=== PATIENT | female | born 1970 | race Caucasian/White ===

== ENCOUNTER 2019-08-22 16:41 | Emergency (ER) | payer SELFPAY ==
[~2019-08-22] VITALS: Ht 165.1 cm; Wt 119.3 kg
--- NOTE | 2019-08-22 17:18 | NUR ---
FIRST CONTACT WITH PT. PT STATES "BLEEDING FOR 2 MONTHS, A LOT HEAVIER LAST COUPLE DAYS, SEE DR. AHMADI ON MONDAY. CRAMPING WORSE LAST COUPLE DAYS AND LOW BACK PAIN, I COULDN'T WAIT UNTIL MONDAY. STARTED TAKING PROVERA 10MG FOR LAST 4 DAYS." A4. PT'S AOX4. RESPS EVEN AND UNLABORED. DENIES ANY URINARY SX. BP/SPO2 MONITORS IN PLACE. CALL LIGHT WITHIN REACH. AT BEDSIDE.
--- NOTE | 2019-08-22 18:10 | NUR ---
pt amb to br and back to room with steady gait. pt provided urine sample. ua sent.
[2019-08-22 18:30] LABS: BASOPHILS # (AUTO) 0.04 x10^3/uL (0-0.1); BASOPHILS % (AUTO) 1 % (0-1); EOSINOPHILS # (AUTO) 0.25 x10^3/uL (0-0.4); EOSINOPHILS % (AUTO) 4 % (1-7); LYMPHOCYTES # (AUTO) 1.97 x10^3/uL (1-3.4); LYMPHOCYTES % (AUTO) 34 % (22-44); MD NO; MEAN CORPUSCULAR HEMOGLOBIN 29.5 pg (27.0-34.8); MEAN CORPUSCULAR HGB CONC 33.1 g/dL (32.4-35.8); MEAN PLATELET VOLUME 7.8 fL (7.4-10.4); MONOCYTES # (AUTO) 0.51 x10^3/uL (0.2-0.8); MONOCYTES % (AUTO) 9 % (2-9); NEUTROPHILS # (AUTO) 3.01 x10^3/uL (1.8-6.8); NEUTROPHILS % (AUTO) 52 % (42-75); PLATELET COUNT 365 x10^3/uL (130-400); RED BLOOD COUNT 4.44 x10^6/uL (3.82-5.3); RED CELL DISTRIBUTION WIDTH 13.6 % (9.6-15.2)
[2019-08-22 18:41] LABS: ANION GAP 7 mmol/L (5-15); CALCIUM 8.6 mg/dL (8.5-10.1); CHLORIDE 104 mmol/L (98-107); CREATININE 0.84 mg/dL (0.55-1.02)
[2019-08-22 18:42] LABS: ALANINE AMINOTRANSFERASE 62 U/L (12-78); ALBUMIN 3.8 g/dL (3.4-5.0)
[2019-08-22 18:46] LABS: ALKALINE PHOSPHATASE 50 U/L (45-117); BILIRUBIN,TOTAL 0.7 mg/dL (0.2-1.0); TOTAL PROTEIN 7.2 g/dL (6.4-8.2)
--- NOTE | 2019-08-22 18:51 | NUR ---
report given to carol hernandez.
--- NOTE | 2019-08-22 18:54 | NUR ---
REPORT RECEIVED FROM NORA LE. [facility] FAMILY AT FOR SUPPORT. PT UPDATED ON POC. CALL LIGHT WITHIN REACH. MONITORING IN PLACE. PT DENIES FURTHER NEEDS AT THIS TIME.
--- NOTE | 2019-08-22 19:11 | NUR ---
PT TO IMAGING AT THIS TIME.
[2019-08-22 19:36] VITALS: BP 141/72
[2019-08-22 19:41] LABS: MICROSCOPIC INDICATED
[2019-08-22 19:57] LABS: CULTURE INDICATED? NO
== END 2019-08-22 20:03 | disposition home or self-care (01) ==
LOC: ED 19:45
DX: N93.8 Other specified abnormal uterine and vaginal bleeding (principal); N98.9 Complication associated with artificial fertilization, unspecified; R10.2 Pelvic and perineal pain; R42 Dizziness and giddiness; I10 Essential (primary) hypertension
CPT/HCPCS: 36415; 76830; 80053; 81001; 84703; 85025; 99284